=== PATIENT | female | born 1995 | race Caucasian/White ===

== ENCOUNTER 2020-12-04 13:14 | Day surgery (SDC) | payer MEDICAID ==
[~2020-12-04] VITALS: Ht 162.6 cm; Wt 65.9 kg
[2020-12-04 14:23] VITALS: BP 101/72; PULSE 71; TEMP 98
[2020-12-04] MEDS ORDERED: MACROBID 1100 MG/CAP PO (14:49)
[2020-12-04] MEDS ORDERED: ZOVIRAX400 MG PO (14:49)
[2020-12-04] MEDS ORDERED: NORCO 325 MG-51 TAB PO ×2 (14:50→16:50)
[2020-12-04] MEDS ORDERED: OMNICEF 300MG300 MG PO (16:50)
[2020-12-04 17:22] VITALS: BP 109/57; PULSE 66
--- NOTE | 2020-12-04 17:22 | NUR ---
Patient returns to room 7 per cart from the PACU accompanied by Donaldo CORRAL and is awake and alert. Temp 97.4. IV fluids infusing. Siderails up x2 and call light in reach. Mother in room. Patient assisted up to the bathroom and gait steady. Returns to room.
[2020-12-04 17:37] VITALS: BP 101/68; PULSE 71
--- NOTE | 2020-12-04 17:37 | NUR ---
Eating jello and drinking water. Given Sprite and muffin.
[2020-12-04 17:49] VITALS: BP 101/63; PULSE 71
--- NOTE | 2020-12-04 17:49 | NUR ---
Tolerated snack. INT needle discontinued. Up dressing self.
--- NOTE | 2020-12-04 17:55 | NUR ---
Dismissal instructions given and signed. Provided office number for questions and concerns.
[2020-12-04 18:00] VITALS: BP 109/64; PULSE 64; TEMP 98.6
--- NOTE | 2020-12-04 18:01 | NUR ---
Patient dismissed to home driven by mother and assisted into vehicle with all dismissal instructions in hand.
== END 2020-12-04 18:01 | disposition home or self-care (01) ==
LOC: SDCO 13:14
DX: O26.892 Other specified pregnancy related conditions, second trimester (principal); N20.1 Calculus of ureter; Z20.822 Contact with and (suspected) exposure to COVID-19; Z79.891 Long term (current) use of opiate analgesic; Z79.899 Other long term (current) drug therapy; Z3A.24 24 weeks gestation of pregnancy; Z87.891 Personal history of nicotine dependence
CPT/HCPCS: C1769; J0330; J0690; J2405; J2704; J3010; J7120